=== PATIENT | male | born 1935 ===

== ENCOUNTER 2019-05-15 12:09 | Emergency (ER) | payer MEDICARE ==
[2019-05-15] MEDS ORDERED: DIPHENHYDRAMINE HCL 25 MG CAPSULE PO ONE (12:42)
--- NOTE | 2019-05-15 12:42 | Emergency Department Record ---
History of Present Illness - General Chief Complaint: Depression Stated Complaint: SHAKY Time Seen by Provider: 05/15/19 12:24 Source: Patient, Family () Mode of Arrival: Ambulatory Limitations: No limitations Travel/Exposure to [place] Within 21 Days of Symptoms: No - History of Present Illness Initial Comments: Presents to the ED from home with his for a feeling of "anxiety". Pt over the past week has been thinking of a few issues that "are not new". He has been concerned with his leaving his job 12 years ago at the [employer]. ALso the of his younger brother "years ago". The major concern of his is that he has been anxious about the of his son one year ago related to a cardiac event. When he thinks of these things he states tehy " occupy my brain and my hand shakes". Pt has a slight tremor to his right hand which he can voluntarily stop. He has no "Depression" or thoughts of or suicide, no CP, BREANNA, N/V, fever, cough. He is active at home with light yard work. He has not seen a doctor is years and has no hx of mental health treatments. History of same: No Quality: Intermittent Improves With: None Worsens With: None Associated Symptoms: Denies other symptoms Treatments Prior to Arrival: None - Steele Coma Scale Eye Response: (4) Open spontaneously Motor Response: (6) Obeys commands Verbal Response: (4) Confused conversation Steele Total: 14 - Related Data Allergies Allergy/AdvReac Type Severity Reaction Status Date / Time No Known Allergies Allergy no Verified 05/15/19 12:19 allergies Past Medical History - SOCIAL HISTORY Smoking Status: Former smoker Alcohol Use: None Drug Use: None - RESPIRATORY Hx Respiratory Disorders: No - CARDIOVASCULAR Hx Cardio Disorders: Yes Hx Hypertension: Yes - NEURO Hx Neuro Disorders: No - GI Hx GI Disorders: No - Hx Genitourinary Disorders: No - ENDOCRINE Hx Endocrine Disorders: No - MUSCULOSKELETAL Hx Musculoskeletal Disorders: No - PSYCH Hx Psych Problems: No - HEMATOLOGY/ONCOLOGY Hx Hematology/Oncology Disorders: No Family Medical History Any Significant Family History?: No Course Vital Signs 05/15/19 12:12 Temperature 97.6 F Pulse Rate 72 Respiratory 18 Rate Blood Pressure 179/86 Pulse Ox 97 - Reevaluation(s) Reevaluation #1: 05/15/19 14:32 Seen By Lilian from [facility]. Plan for out pt. follow up. Pt and comfortable with this plan. Feels relaxed with benadryl. Also will see [facility] Medical Decision Making - Lab Data Result diagrams: 05/15/19 12:58 05/15/19 12:58 Disposition Disposition: Discharge Clinical Impression: Anxiety Disposition: Home, Self-Care Condition: (2) Stable Instructions: Generalized Anxiety Disorder (ED) Additional Instructions: Take Benadryl over the counter 25mg every 6 hours as needed to relax. See Lilian as instructed at [facility]. Call to see Dr. Carvalho in office in 2-3 days. Return to the ED as needed. Forms: Patient Portal Access Time of Disposition: 14:34 Quality - Quality Measures Quality Measures: N/A - Blood Pressure Screening Does Patient Have Any of the Following: No Blood Pressure Classification: Pre-Hypertensive BP Reading Systolic Measurement: 179 Diastolic Measurement: 86 Screening for High Blood Pressure: < Pre-Hypertensive BP, F/U Documented > [[id number]] Pre-Hypertensive Follow-up Interventions: Follow-up with rescreen every year.
[2019-05-15] MEDS ORDERED: NITROGLYCERIN 0.4MG SL TABLET #25 BTL SL PRN (12:58)
[2019-05-15] MEDS ORDERED: 0.9 % SODIUM CHLORIDE 1000ML 1,000 ML IV ONE (12:58)
[2019-05-15] MEDS ORDERED: ASPIRIN 81 MG CHEWABLE TABLET PO ONE (12:58)
== END 2019-05-15 14:40 | disposition home or self-care (01) ==
LOC: ER 12:09
DX: F41.1 Generalized anxiety disorder (principal); R25.1 Tremor, unspecified; I10 Essential (primary) hypertension; Z87.891 Personal history of nicotine dependence
CPT/HCPCS: 99283